=== PATIENT | male | born 1995 | race Caucasian/White ===

== ENCOUNTER 2016-06-29 11:08 | Emergency (ER) | payer BC ==
[~2016-06-29] VITALS: Ht 182.9 cm; Wt 114.8 kg
[2016-06-29 11:37] VITALS: BP 123/86
== END 2016-06-29 15:11 | disposition left against medical advice (07) ==
LOC: ER 11:08
DX: R53.1 Weakness (principal); Z53.21 Procedure and treatment not carried out due to patient leaving prior to being seen by health care provider